=== PATIENT | male | born 1970 | race Two or more races ===

== ENCOUNTER 2019-01-01 13:20 | Emergency (ER) | payer SELFPAY ==
[~2019-01-01] VITALS: Ht 177.8 cm; Wt 105.6 kg
--- NOTE | 2019-01-01 13:53 | NUR ---
PT C/O LEFT FLANK PAIN SINCE YESTERDAY NOT WORSENED BY MOVEMENT AND PT DENIES ANY TRAUMA. PT DENIES DYSURIA, FEVERS, CHILLS. PT REPORTS LAST BM WAS ABOUT 2 DAYS AGO. PT SEEN BY RESIDENT, WAITING FOR ORDERS.
[2019-01-01 14:30] LABS: BASOPHILS # (AUTO) 0.04 x10^3/uL (0-0.1); BASOPHILS % (AUTO) 1 % (0-1); EOSINOPHILS # (AUTO) 0.18 x10^3/uL (0-0.4); EOSINOPHILS % (AUTO) 2 % (1-7); LYMPHOCYTES # (AUTO) 2.27 x10^3/uL (1-3.4); LYMPHOCYTES % (AUTO) 28 % (22-44); MD NO; MEAN CORPUSCULAR HEMOGLOBIN 30.2 pg (27.5-34.5); MEAN CORPUSCULAR HGB CONC 33.2 g/dL (33.2-36.2); MEAN CORPUSCULAR VOLUME 91.1 fL (81-97); MEAN PLATELET VOLUME 9.1 fL (7.4-10.4); MONOCYTES # (AUTO) 0.62 x10^3/uL (0.2-0.8); MONOCYTES % (AUTO) 8 % (2-9); NEUTROPHILS # (AUTO) 5.04 x10^3/uL (1.8-6.8); NEUTROPHILS % (AUTO) 62 % (42-75); PLATELET COUNT 199 x10^3/uL (130-400); RED BLOOD COUNT 5.93 x10^6/uL (4.38-5.82); RED CELL DISTRIBUTION WIDTH 13.9 % (9.4-14.8)
[2019-01-01 14:40] LABS: ALANINE AMINOTRANSFERASE 37 U/L (12-78); ANION GAP 4 mmol/L (5-15); CALCIUM 8.9 mg/dL (8.5-10.1); CHLORIDE 110 mmol/L (98-107)
[2019-01-01 14:44] LABS: ALKALINE PHOSPHATASE 99 U/L (45-117); BILIRUBIN,TOTAL 0.6 mg/dL (0.2-1.0); TOTAL PROTEIN 7.3 g/dL (6.4-8.2); TROPONIN I < 0.015 ng/mL (0.000-0.045)
--- NOTE | 2019-01-01 15:00 | NUR ---
UA COLLECTED AND SENT TO THE LAB. PT UPDATED ON POC.
[2019-01-01 15:15] LABS: MICROSCOPIC NOT IND
[2019-01-01 15:23] LABS: CULTURE INDICATED? NO
--- NOTE | 2019-01-01 15:46 | NUR ---
CHART UP FOR MD RECHECK. PT AWARE.
[2019-01-01 15:50] VITALS: BP 151/98
== END 2019-01-01 16:50 | disposition home or self-care (01) ==
LOC: ED 13:57
DX: K59.00 Constipation, unspecified (principal); F17.210 Nicotine dependence, cigarettes, uncomplicated; I10 Essential (primary) hypertension; J45.909 Unspecified asthma, uncomplicated
CPT/HCPCS: 36415; 71045; 74021; 80053; 81003; 84484; 85025; 85379; 93005; 99284

== ENCOUNTER 2019-03-29 00:42 | Emergency (ER) | payer MEDICARE ==
[~2019-03-29] VITALS: Ht 177.8 cm; Wt 105.2 kg
[2019-03-29 01:51] VITALS: BP 147/90
== END 2019-03-29 02:07 | disposition home or self-care (01) ==
LOC: ED 01:28
DX: J45.41 Moderate persistent asthma with (acute) exacerbation (principal); I10 Essential (primary) hypertension; F17.200 Nicotine dependence, unspecified, uncomplicated
CPT/HCPCS: 71046; 93005; 94640; 94664; 99283; J7620

== ENCOUNTER 2020-07-15 15:07 | Emergency (ER) | payer MEDICARE ==
--- NOTE | 2020-07-15 16:16 | NUR ---
NO ANSWER FROM [facility]
== END 2020-07-15 16:54 | disposition left against medical advice (07) ==
LOC: ED 16:00
DX: M54.9 Dorsalgia, unspecified (principal); Z53.21 Procedure and treatment not carried out due to patient leaving prior to being seen by health care provider